=== PATIENT | female | born 1935 | race Two or more races ===

== ENCOUNTER 2022-05-29 05:45 | Inpatient (IN) | payer OTHER ==
[~2022-05-29] VITALS: Ht 149.9 cm; Wt 65.3 kg
[~2022-05-29 05:45] MED LIST: ALTACE5 M1; ANASTROZOLE1 MG PO; CALTRATE 600600 MG; CILOSTAZOL100 MG PO; COUMADIN2 MG; COZAAR100 MG PO; DILTIAZEM ER120 M2 PO; GABAPENTIN400 MG PO; ISOSORBIDE MONO60 MG PO; JANUVIA100 MG PO; PLAVIX75 MG; TOPROL XL50 MG PO; TRAM1TAB98 PO; ZOCOR40 MG
== END 2022-05-30 15:11 | disposition home or self-care (01) | DRG 581 ==
LOC: CIR.AMB 05:45 → SURG 20:48
PROVIDERS: ADMIT Surgery; ATTEND Surgery
PROC: 0HTT0ZZ Resection of Right Breast, Open Approach (ICD-10-PCS; 2022-05-29)
PROC: 07B50ZZ Excision of Right Axillary Lymphatic, Open Approach (ICD-10-PCS; principal; 2022-05-29 09:00)
DX: C50.811 Malignant neoplasm of overlapping sites of right female breast (principal); Z20.822 Contact with and (suspected) exposure to COVID-19

== ENCOUNTER 2022-08-20 13:55 | Emergency (ER) | payer OTHER ==
[~2022-08-20] VITALS: Ht 149.9 cm; Wt 65.3 kg
[~2022-08-20 13:55] MED LIST changes: -ZOCOR40 MG; +ZOCOR40 MG PO
[2022-08-20] MEDS ORDERED: ADULT LOW DOSE81 M1 PO (14:32)
[2022-08-20] MEDS ORDERED: MACRODANTIN100 M1 PO (18:21)
[2022-08-20] MEDS ORDERED: PEPCID AC20 MG PO (18:22)
== END 2022-08-20 18:54 | disposition home or self-care (01) ==
LOC: ER 13:55
DX: R11.2 Nausea with vomiting, unspecified (principal); I11.9 Hypertensive heart disease without heart failure; E11.9 Type 2 diabetes mellitus without complications; Z79.84 Long term (current) use of oral hypoglycemic drugs